=== PATIENT | male | born 1945 | race Caucasian/White ===

== ENCOUNTER 2019-10-14 09:37 | Emergency (ER) | payer MEDICARE ==
--- NOTE | 2019-10-14 09:47 | EDM.PDOC ---
ED HPI GENERAL MEDICAL PROBLEM - General Chief Complaint: Genitourinary Problem Stated Complaint: plugged fernandez Time Seen by Provider: 10/14/19 09:50 Source of Information: Reports: Patient History Limitations: Reports: No Limitations - History of Present Illness INITIAL COMMENTS - FREE TEXT/NARRATIVE: This patient presents to the ED stating he has a pulled urinary catheter. He has an indwelling catheter that was changed on 09/28. He tried irrigation this morning at home but was unsuccessful. He denies other concerns or complaints. 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 ED EXAM, RENAL/ - Physical Exam Exam: See Below Exam Limited By: No Limitations General Appearance: Alert, No Apparent Distress Eye Exam: Bilateral Eye: PERRL Ears: Normal External Exam, Normal TMs Nose: Normal Inspection Throat/Mouth: Normal Inspection Head: Atraumatic, Normocephalic Neck: Normal Inspection, Full Range of Motion Respiratory/Chest: No Respiratory Distress, No Accessory Muscle Use (Male) Exam: Normal Inspection, Suprapubic Fullness Neurological: Alert, Oriented Psychiatric: Normal Affect Skin Exam: Warm, Dry, Intact, Normal Color Course - Re-Assessments/Exams Free Text/Narrative Re-Assessment/Exam: 10/14/19 10:10 This patient presented for urinary retention. Nursing attempted irrigation but was unsuccessful; fernandez was replaced without difficulty. Patient's bladder drained with significant improvement. Departure - Departure Time of Disposition: 10:05 Disposition: Home, Self-Care 01 Clinical Impression: Urinary retention - Discharge Information Referrals: PCP,None [Primary Care Provider] - Forms: ED Department Discharge Sepsis Event Note - Focused Exam Date Exam was Performed: 10/14/19 Time Exam was Performed: 10:10
== END 2019-10-14 10:10 | disposition home or self-care (01) ==
LOC: LB.ED 09:37
DX: R33.9 Retention of urine, unspecified (principal)
CPT/HCPCS: 51702; 99283-25

== ENCOUNTER 2019-12-03 12:22 | Emergency (ER) | payer MEDICARE ==
--- NOTE | 2019-12-03 12:54 | EDM.PDOC ---
ED HPI GENERAL MEDICAL PROBLEM - General Chief Complaint: General Stated Complaint: plugged catheter Time Seen by Provider: 12/03/19 12:40 Source of Information: Reports: Patient History Limitations: Reports: No Limitations - History of Present Illness INITIAL COMMENTS - FREE TEXT/NARRATIVE: neurogenic bladder. Has had indwelling catheter since May 2019. He has not made it 30 days between changes due to clogging. Last replaced 11/10/2019. Since that time he has had no problems until this morning. He last emptied his leg bag a 8 am. Since that time he has had increasing pressure. He tried to manipulate and irrigate the catheter without success. He is having significant discomfort. 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 (see below) Other Treatments FINAL INSPECTOR PAPER: attempted to irrigate bladder Past Medical History Genitourinary History: Reports: Neurogenic Bladder, Retention, Urinary Hematologic History: Reports: None - Past Surgical History Male Surgical History: Reports: None Oncologic Surgical History: Reports: None Social & Family History - Family History Family Medical History: Noncontributory - Caffeine Use Caffeine Use: Reports: Coffee ED ROS GENERAL - Review of Systems Review Of Systems: See Below Constitutional: Reports: No Symptoms Respiratory: Reports: No Symptoms Cardiovascular: Reports: No Symptoms GI/Abdominal: Reports: No Symptoms : Reports: Incontinence, Pain, Urinary Retention Musculoskeletal: Reports: No Symptoms Skin: Reports: No Symptoms Neurological: Reports: No Symptoms ED EXAM, GENERAL - Physical Exam Exam: See Below Exam Limited By: No Limitations General Appearance: Alert, WD/WN, Moderate Distress Respiratory/Chest: No Respiratory Distress, Lungs Clear, Normal Breath Sounds, No Accessory Muscle Use Cardiovascular: Normal Peripheral Pulses, Regular Rate, Rhythm, No Edema GI/Abdominal: Normal Bowel Sounds, Soft, Non-Tender (Male) Exam: Normal Inspection. No: Penile Lesions, Scrotal Swelling, Urethral Discharge Rectal (Males) Exam: Deferred Extremities: Normal Inspection, Normal Range of Motion, Non-Tender Neurological: Alert, Oriented, CN II-XII Intact, Normal Cognition, Normal Gait, Normal Reflexes Skin Exam: Warm, Dry, Intact, Other (area under leg bag reddened where strap rubs leg - he uses a bandaid on his skin to keep from having friction against leg and preventing sore) Lymphatic: No Adenopathy Course - Vital Signs Text/Narrative:: Replace urinary catheter. Departure - Departure Time of Disposition: 13:15 Disposition: Home, Self-Care 01 Condition: Good Clinical Impression: Neurogenic bladder, Urinary retention - Discharge Information *PRESCRIPTION DRUG MONITORING PROGRAM REVIEWED*: Not Applicable *COPY OF PRESCRIPTION DRUG MONITORING REPORT IN PATIENT MOUSTAPHA: Not Applicable Instructions: Neurogenic Bladder Care Plan Goals: Patient to follow up with Urologist when he returns to [place]. Currently he [place] in [place] and [place] in [place]. He is to make clinic appointment to have cath changed in 30 days or return to ER if unable to void after manipulation/irrigation of catheter.
== END 2019-12-03 13:15 | disposition home or self-care (01) ==
LOC: LB.ED 12:22
DX: R33.9 Retention of urine, unspecified (principal); N31.9 Neuromuscular dysfunction of bladder, unspecified
CPT/HCPCS: 51702; 99283

== ENCOUNTER 2019-12-17 08:43 | Emergency (ER) | payer MEDICARE ==
--- NOTE | 2019-12-17 09:44 | EDM.PDOC ---
ED HPI GENERAL MEDICAL PROBLEM - General Chief Complaint: Genitourinary Problem Stated Complaint: PLUGGED CATH Time Seen by Provider: 12/17/19 09:35 Source of Information: Reports: Patient, RN History Limitations: Reports: No Limitations - History of Present Illness INITIAL COMMENTS - FREE TEXT/NARRATIVE: Patient has had a fernandez cath since Jun. He woke this morning ant it was plugged, he attempted to flush it at home without success. Per nursing bladderscan showed 800ml. Onset: Today Onset Date: 12/17/19 Improves with: Reports: Other (fernandez replacement) Associated Symptoms: Reports: No Other Symptoms - Related Data Home Meds: Home Meds Tamsulosin [Flomax] 0.4 mg PO DAILY 12/17/19 [History] Past Medical History - Past Health History Medical/Surgical History: Denies Medical/Surgical History Genitourinary History: Reports: Neurogenic Bladder, Retention, Urinary Hematologic History: Reports: None - Past Surgical History Male Surgical History: Reports: None Oncologic Surgical History: Reports: None Social & Family History - Family History Family Medical History: Noncontributory - Tobacco Use Smoking Status *Q: Never Smoker Second Hand Smoke Exposure: No - Caffeine Use Caffeine Use: Reports: Coffee ED ROS GENERAL - Review of Systems Review Of Systems: See Below Constitutional: Reports: No Symptoms HEENT: Reports: No Symptoms Respiratory: Reports: No Symptoms Cardiovascular: Reports: No Symptoms Endocrine: Reports: No Symptoms GI/Abdominal: Reports: Other (full bladder sensation, denies pain). Denies: Abdominal Pain Skin: Reports: No Symptoms Neurological: Reports: No Symptoms Psychiatric: Reports: No Symptoms ED EXAM, RENAL/ - Physical Exam Exam: See Below Exam Limited By: No Limitations General Appearance: Alert Throat/Mouth: Normal Voice Head: Atraumatic Neck: Full Range of Motion Respiratory/Chest: No Respiratory Distress, Lungs Clear, Normal Breath Sounds Cardiovascular: No Murmur GI/Abdominal: Soft, Non-Tender (Male) Exam: Suprapubic Fullness Back Exam: Normal Inspection. No: CVA Tenderness (R), CVA Tenderness (L) Neurological: Alert, Oriented Psychiatric: Normal Affect Skin Exam: Warm, Dry Course - Vital Signs Last Recorded V/S: Last Vital Signs Temp 97.3 F 12/17/19 08:55 Pulse 73 12/17/19 08:55 Resp 18 12/17/19 08:55 BP 162/81 H 12/17/19 08:55 Pulse Ox - Orders/Labs/Meds Orders: Active Orders 24 hr Category Date Time Status UA W/MICROSCOPIC [URIN] Stat Lab 12/17/19 09:37 Results Labs: Laboratory Tests 12/17/19 Range/Units 09:37 Urine Color Yellow Urine Appearance Slightly cloudy (CLEAR) Urine pH 7.5 (5.0-8.0) Ur Specific [place] 1.020 (1.003-1.030) Urine Protein Negative (NEGATIVE) mg/dL Urine Glucose (UA) Negative (NEGATIVE) mg/dL Urine Ketones Negative (NEGATIVE) mg/dL Urine Occult Blood Large H (NEGATIVE) Urine Nitrite Negative (NEGATIVE) Urine Bilirubin Negative (NEGATIVE) Urine Urobilinogen 0.2 (0.2-1.0) E.U./dL Ur Leukocyte Esterase Moderate H (NEGATIVE) Departure - Departure Time of Disposition: 10:12 Disposition: Home, Self-Care 01 Condition: Good Clinical Impression: Retention of urine, Urinary retention - Discharge Information *PRESCRIPTION DRUG MONITORING PROGRAM REVIEWED*: No *COPY OF PRESCRIPTION DRUG MONITORING REPORT IN PATIENT MOUSTAPHA: No Instructions: Indwelling Urinary Catheter Care, Adult, [id number] Referrals: PCP,None [Primary Care Provider] - Forms: ED Department Discharge Additional Instructions: Follow up with your primary doctor if symptoms persist. Return to ED for any increased or new concerning symptoms. Sepsis Event Note (ED) - Evaluation Sepsis Screening Result: No Definite Risk - Focused Exam Vital Signs: Vital Signs Temp Pulse Resp BP 12/17/19 08:55 97.3 F 73 18 162/81 H - My Orders Last 24 Hours: My Active Orders 12/17/19 09:37 UA W/MICROSCOPIC [URIN] Stat - Assessment/Plan Last 24 Hours: My Active Orders 12/17/19 09:37 UA W/MICROSCOPIC [URIN] Stat
== END 2019-12-17 10:25 | disposition home or self-care (01) ==
LOC: LB.ED 08:43
DX: R33.9 Retention of urine, unspecified (principal)
CPT/HCPCS: 51702; 51798; 81001; 99283

== ENCOUNTER 2020-02-03 08:01 | Emergency (ER) | payer MEDICARE ==
--- NOTE | 2020-02-03 09:09 | EDM.PDOC ---
ED HPI GENERAL MEDICAL PROBLEM - General Chief Complaint: General Stated Complaint: PLUGGED CATH Time Seen by Provider: 02/03/20 08:45 Source of Information: Reports: Patient - History of Present Illness INITIAL COMMENTS - FREE TEXT/NARRATIVE: indwelling fernandez since June. Emptied his bag this AM and then it stopped draining. He attempted to unplug it at home without success. Denies any fever, cough, SOB, CP, or urinary symptoms.. Onset: Today Severity: Mild - Related Data Allergies Allergy/AdvReac Type Severity Reaction Status Date / Time No Known Allergies Allergy Verified 02/03/20 09:02 Home Meds: Home Meds Tamsulosin [Flomax] 0.4 mg PO DAILY 12/17/19 [History] cephALEXin [Cephalexin] 500 mg PO Q6HR 7 Days #28 tablet 02/03/20 [Rx] Past Medical History - Past Health History Medical/Surgical History: Denies Medical/Surgical History Genitourinary History: Reports: Neurogenic Bladder, Retention, Urinary Hematologic History: Reports: None - Past Surgical History Male Surgical History: Reports: None Oncologic Surgical History: Reports: None Social & Family History - Family History Family Medical History: Noncontributory - Tobacco Use Smoking Status *Q: Never Smoker Second Hand Smoke Exposure: No - Caffeine Use Caffeine Use: Reports: None - Recreational Drug Use Recreational Drug Use: No ED ROS GENERAL - Review of Systems Review Of Systems: See Below Constitutional: Reports: No Symptoms HEENT: Reports: No Symptoms Respiratory: Reports: No Symptoms Cardiovascular: Reports: No Symptoms Endocrine: Reports: No Symptoms GI/Abdominal: Reports: No Symptoms : Reports: Urinary Retention Musculoskeletal: Reports: No Symptoms Skin: Reports: No Symptoms Neurological: Reports: No Symptoms Psychiatric: Reports: No Symptoms Hematologic/Lymphatic: Reports: No Symptoms ED EXAM, GENERAL - Physical Exam Exam: See Below Exam Limited By: No Limitations General Appearance: Alert, No Apparent Distress Head: Atraumatic Neck: Normal Inspection Respiratory/Chest: No Respiratory Distress Cardiovascular: Regular Rate, Rhythm, No Edema GI/Abdominal: Soft, Non-Tender, No Distention (Male) Exam: Other (blood noted to meatus after cath insertion, patient denies pain and states this has happened in the past with cath changed). No: Suprapubic Fullness Rectal (Males) Exam: Deferred Extremities: Normal Inspection, Normal Range of Motion Neurological: Alert, Oriented, Normal Cognition Psychiatric: Normal Affect, Normal Mood Skin Exam: Warm, Dry, Intact Course - Vital Signs Last Recorded V/S: Last Vital Signs Temp 96.9 F 02/03/20 08:13 Pulse 83 02/03/20 08:13 Resp 18 02/03/20 08:13 BP 164/98 H 02/03/20 08:13 Pulse Ox 96 02/03/20 08:13 - Orders/Labs/Meds Orders: Active Orders 24 hr Category Date Time Status Fernandez Catheter Insertion [Insert Urinary Catheter] [OM. Care 02/03/20 08:15 Ordered PC] Q24H Urinary Catheter Assessment [RC] ASDIRECTED Care 02/03/20 08:38 Active Labs: Laboratory Tests 02/03/20 Range/Units 08:37 Urine Color Yellow Urine Appearance Clear (CLEAR) Urine pH 7.0 (5.0-8.0) Ur Specific [place] 1.015 (1.003-1.030) Urine Protein Negative (NEGATIVE) mg/dL Urine Glucose (UA) Negative (NEGATIVE) mg/dL Urine Ketones Negative (NEGATIVE) mg/dL Urine Occult Blood Large H (NEGATIVE) Urine Nitrite Negative (NEGATIVE) Urine Bilirubin Negative (NEGATIVE) Urine Urobilinogen 0.2 (0.2-1.0) E.U./dL Ur Leukocyte Esterase Large H (NEGATIVE) Urine RBC 10-20 H /HPF Urine WBC 50-75 H /HPF Urine WBC Clumps Rare /HPF Urine Bacteria Few /HPF Departure - Departure Time of Disposition: 09:13 Disposition: Home, Self-Care 01 Condition: Good Clinical Impression: Catheter (urine) change required UTI (urinary tract infection) Qualifiers: Indwelling urinary catheter type: indwelling urethral catheter Encounter type: initial encounter - Discharge Information *PRESCRIPTION DRUG MONITORING PROGRAM REVIEWED*: Not Applicable *COPY OF PRESCRIPTION DRUG MONITORING REPORT IN PATIENT MOUSTAPHA: Not Applicable Prescriptions: cephALEXin [Cephalexin] 500 mg PO Q6HR 7 Days #28 tablet Instructions: Urinary Tract Infection, Adult, [id number] Referrals: PCP,None [Primary Care Provider] - Additional Instructions: Follow up with your primary doctor next week for urine recheck. Return to ED for any increased or new concerning symptoms. Take the antibiotics every 6 hours for 7 days. Sepsis Event Note (ED) - Evaluation Sepsis Screening Result: No Definite Risk - Focused Exam Vital Signs: Vital Signs Temp Pulse Resp BP Pulse Ox 02/03/20 08:13 96.9 F 83 18 164/98 H 96 02/03/20 08:12 96.9 F 94 18 164/98 H 96 - My Orders Last 24 Hours: My Active Orders 02/03/20 08:15 Fernandez Catheter Insertion [Insert Urinary Catheter] [OM.PC] Q24H 02/03/20 08:38 Urinary Catheter Assessment [RC] ASDIRECTED - Assessment/Plan Last 24 Hours: My Active Orders 02/03/20 08:15 Fernandez Catheter Insertion [Insert Urinary Catheter] [OM.PC] Q24H 02/03/20 08:38 Urinary Catheter Assessment [RC] ASDIRECTED
== END 2020-02-03 09:20 | disposition home or self-care (01) ==
LOC: LB.ED 08:01
DX: Z46.6 Encounter for fitting and adjustment of urinary device (principal); N39.0 Urinary tract infection, site not specified; Z79.899 Other long term (current) drug therapy
CPT/HCPCS: 51702; 81001; 99283; 99283-25

== ENCOUNTER 2020-10-27 07:35 | Emergency (ER) | payer MEDICARE ==
--- NOTE | 2020-10-27 09:00 | ER ---
HISTORY OF PRESENT ILLNESS: A 75-year-old male who comes to the ER because his Chawla catheter is plugged. He has had this catheter in place for at least a year. He states that his bladder is stretched out and not working properly anymore. The patient states that he has had to have the Chawla catheter changed a few times. He is feeling okay. He is not running a fever. He does not feel sick. He does not have any pain. He can just tell that he is starting to build up a little pressure in the bladder. OBJECTIVE: GENERAL APPEARANCE: The patient is awake and alert. No obvious distress. VITAL SIGNS: Reviewed as listed. : The patient does have a Chawla catheter in place with a very small amount of urine in the bag. TREATMENT PLAN: Nursing staff tried to flush the Chawla without success. Therefore, it was decided to change the Chawla for a new one. Nursing staff did insert a new Chawla, but was unsuccessful getting it in. We then switched to a coude catheter and nursing staff was able to insert that without any difficulty and immediately was a blood tinged flow of urine with a couple of small clots. At this point, the patient will be discharged. He is to follow up as needed with his primary care provider. He states that the urologist he sees is in [place] in the winter time. I feel the patient may be a candidate for a suprapubic catheter at some point in time, but that is the decision he can make with his urologist. The patient has no further questions. Dz: Plugged Chawla catheter. CRS/MODL /[id number] MERY
== END 2020-10-27 08:30 | disposition home or self-care (01) ==
LOC: LB.ED 07:35
DX: Z46.6 Encounter for fitting and adjustment of urinary device (principal)
CPT/HCPCS: 99282; 99283

== ENCOUNTER 2021-01-16 10:34 | Emergency (ER) | payer MEDICARE ==
--- NOTE | 2021-01-16 17:14 | EDM.PDOC ---
ED HPI GENERAL MEDICAL PROBLEM - General Chief Complaint: Tube Replacement Stated Complaint: CATHETER CHANGE Time Seen by Provider: 01/16/21 10:40 Source of Information: Reports: Patient History Limitations: Reports: No Limitations - History of Present Illness INITIAL COMMENTS - FREE TEXT/NARRATIVE: This patient presented to the ED requesting that his indwelling fernandez catheter be changed. He states he always "just shows up" when he needs it changed. - Related Data Allergies Allergy/AdvReac Type Severity Reaction Status Date / Time No Known Allergies Allergy Verified 01/16/21 10:41 Home Meds: Home Meds Tamsulosin [Flomax] 0.4 mg PO DAILY 12/17/19 [History] Past Medical History - Past Health History Medical/Surgical History: Denies Medical/Surgical History Genitourinary History: Reports: Neurogenic Bladder, Retention, Urinary Hematologic History: Reports: None - Past Surgical History Male Surgical History: Reports: None Oncologic Surgical History: Reports: None Social & Family History - Family History Family Medical History: No Pertinent Family History - Caffeine Use Caffeine Use: Reports: Coffee ED ROS GENERAL - Review of Systems Review Of Systems: See Below Reason Not Obtained: Patient did not request nor require emergency care. ED EXAM, GENERAL - Physical Exam Exam: Not Obtained Reason Not Obtained: Patient did not request nor require emergency care. Course - Vital Signs Last Recorded V/S: Last Vital Signs Temp 35.9 C L 01/16/21 10:43 Pulse 77 01/16/21 10:43 Resp 18 01/16/21 10:43 BP 179/77 H 01/16/21 10:43 Pulse Ox 95 01/16/21 10:43 Departure - Departure Time of Disposition: 11:50 Disposition: Home, Self-Care 01 Clinical Impression: Fernandez catheter in place prior to arrival - Discharge Information Instructions: Indwelling Urinary Catheter Care, Adult, [id number] Referrals: PCP,None [Primary Care Provider] - Forms: ED Department Discharge Sepsis Event Note (ED) - Evaluation Sepsis Screening Result: No Definite Risk - Focused Exam Vital Signs: Vital Signs Temp Pulse Resp BP Pulse Ox 01/16/21 10:43 35.9 C L 77 18 179/77 H 95
== END 2021-01-16 11:11 | disposition home or self-care (01) ==
LOC: LB.ED 10:34
DX: T83.091A Other mechanical complication of indwelling urethral catheter, initial encounter (principal)
CPT/HCPCS: 51702; 99283-25

== ENCOUNTER 2021-02-23 19:40 | Emergency (ER) | payer MEDICARE ==
--- NOTE | 2021-02-23 20:56 | EDM.PDOC ---
ED HPI GENERAL MEDICAL PROBLEM - General Chief Complaint: General Stated Complaint: CATH. CHANGE Time Seen by Provider: 02/23/21 19:50 - History of Present Illness INITIAL COMMENTS - FREE TEXT/NARRATIVE: Pt is here for a catheter change. He has had one for over 1 yr, and gets it changed every few weeks. He is not having any issues. He tried to get it done at the clinic once and was told to come here, so that's what he does. - Related Data Allergies Allergy/AdvReac Type Severity Reaction Status Date / Time No Known Allergies Allergy Verified 02/23/21 20:23 Home Meds: Home Meds Tamsulosin [Flomax] 0.4 mg PO DAILY 12/17/19 [History] Past Medical History - Past Health History Medical/Surgical History: Denies Medical/Surgical History Genitourinary History: Reports: Neurogenic Bladder, Retention, Urinary Hematologic History: Reports: None - Past Surgical History Male Surgical History: Reports: None Oncologic Surgical History: Reports: None Social & Family History - Family History Family Medical History: No Pertinent Family History - Caffeine Use Caffeine Use: Reports: Coffee - Recreational Drug Use Recreational Drug Use: No ED ROS GENERAL - Review of Systems Review Of Systems: Comprehensive ROS is negative, except as noted in HPI. : Reports: Other (Urinary catheter without issues.) ED EXAM, GENERAL - Physical Exam Exam: See Below Course - Vital Signs Last Recorded V/S: Last Vital Signs Temp 97 F 02/23/21 20:24 Pulse 89 02/23/21 20:24 Resp 18 02/23/21 20:24 BP 153/85 H 02/23/21 20:24 Pulse Ox 97 02/23/21 20:24 - Re-Assessments/Exams Free Text/Narrative Re-Assessment/Exam: 02/23/21 20:55 Nursing staff replaced his catheter without any issues. Pt was discharged. Departure - Departure Time of Disposition: 20:15 Disposition: Home, Self-Care 01 Condition: Good Clinical Impression: Catheter (urine) change required - Discharge Information *PRESCRIPTION DRUG MONITORING PROGRAM REVIEWED*: No *COPY OF PRESCRIPTION DRUG MONITORING REPORT IN PATIENT MOUSTAPHA: No Referrals: PCP,None [Primary Care Provider] - Forms: ED Department Discharge Sepsis Event Note (ED) - Evaluation Sepsis Screening Result: No Definite Risk - Focused Exam Vital Signs: Vital Signs Temp Pulse Resp BP Pulse Ox 02/23/21 20:24 97 F 89 18 153/85 H 97
== END 2021-02-23 20:34 | disposition home or self-care (01) ==
LOC: LB.ED 19:40
DX: T83.091A Other mechanical complication of indwelling urethral catheter, initial encounter (principal); Z79.899 Other long term (current) drug therapy
CPT/HCPCS: 51702; 99283-25

== ENCOUNTER 2021-10-09 07:59 | Emergency (ER) | payer MEDICARE | END 2021-10-09 09:00 | disposition home or self-care (01) | LOC: LB.ED 07:59 | DX: T83.098A Other mechanical complication of other urinary catheter, initial encounter (principal); R33.9 Retention of urine, unspecified | CPT/HCPCS: 51702; 99281; 99283-25 ==

== ENCOUNTER 2021-10-28 18:05 | Emergency (ER) | payer MEDICARE | END 2021-10-28 19:27 | disposition home or self-care (01) | LOC: LB.ED 18:05 | DX: R33.9 Retention of urine, unspecified (principal) | CPT/HCPCS: 51702; 99281; 99283-25 ==

== ENCOUNTER 2021-11-16 07:30 | Emergency (ER) | payer MEDICARE | END 2021-11-16 08:09 | disposition home or self-care (01) | LOC: LB.ED 07:30 | DX: Z46.6 Encounter for fitting and adjustment of urinary device (principal) | CPT/HCPCS: 51702; 99283-25 ==

== ENCOUNTER 2022-01-13 17:33 | Emergency (ER) | payer MEDICARE | END 2022-01-13 17:55 | disposition home or self-care (01) | LOC: LB.ED 17:33 | DX: T83.098A Other mechanical complication of other urinary catheter, initial encounter (principal) | CPT/HCPCS: 51702; 99281; 99283 ==

== ENCOUNTER 2022-02-12 08:00 | Emergency (ER) | payer MEDICARE | END 2022-02-12 09:24 | disposition home or self-care (01) | LOC: LB.ED 08:00 | DX: T83.098A Other mechanical complication of other urinary catheter, initial encounter (principal); R33.9 Retention of urine, unspecified | CPT/HCPCS: 51702; 99283 ==

== ENCOUNTER 2022-12-13 17:48 | Emergency (ER) | payer MEDICARE, OTHER ==
[2022-12-13 19:10] LABS: APPEARANCE,URINE CLEAR (CLEAR); BILIRUBIN,URINE NEGATIVE (NEGATIVE); COLOR,URINE YELLOW; GLUCOSE,URINE NEGATIVE (NEGATIVE); KETONES,URINE NEGATIVE (NEGATIVE); LEUKOCYTE ESTERASE,URINE LARGE (NEGATIVE); NITRITE,URINE NEGATIVE (NEGATIVE); OCCULT BLOOD,URINE MODERATE (NEGATIVE); PH,URINE 7.5 (5.0-8.0); PROTEIN,URINE 100 mg/dL (NEGATIVE); UROBILINOGEN,URINE 0.2 E.U./dL (0.2-1.0)
[2022-12-13 19:16] LABS: RBC,URINE 20-30 /HPF; SQUAMOUS EPITHELIAL CELLS,UR OCCASIONAL /HPF; WBC,URINE >100 /HPF
[2022-12-13] MEDS ORDERED: Sulfamethoxazole/Trimethoprim 800-160 MG Tab ONE (19:30)
== END 2022-12-13 19:45 | disposition home or self-care (01) ==
LOC: LB.ED 17:48
DX: N39.0 Urinary tract infection, site not specified (principal); Z46.6 Encounter for fitting and adjustment of urinary device; Z79.899 Other long term (current) drug therapy
CPT/HCPCS: 51702; 81001; 87086; 99283; A9270

== ENCOUNTER 2023-01-31 12:45 | Emergency (ER) | payer MEDICARE ==
[2023-01-31 14:27] VITALS: BP 176/68; PULSE 77
== END 2023-01-31 13:33 | disposition home or self-care (01) ==
LOC: LB.ED 12:45
DX: R33.9 Retention of urine, unspecified (principal)
CPT/HCPCS: 51702; 99282; 99283

== ENCOUNTER 2023-02-24 03:47 | Emergency (ER) | payer MEDICARE | END 2023-02-24 04:27 | disposition home or self-care (01) | LOC: LB.ED 03:47 | DX: R33.9 Retention of urine, unspecified (principal); Z79.899 Other long term (current) drug therapy | CPT/HCPCS: 51702; 99283 ==

== ENCOUNTER 2023-02-26 07:22 | Emergency (ER) | payer MEDICARE ==
[2023-02-26 07:55] LABS: APPEARANCE,URINE TURBID (CLEAR); BILIRUBIN,URINE NEGATIVE (NEGATIVE); COLOR,URINE YELLOW; GLUCOSE,URINE NEGATIVE (NEGATIVE); KETONES,URINE NEGATIVE (NEGATIVE); LEUKOCYTE ESTERASE,URINE LARGE (NEGATIVE); NITRITE,URINE POSITIVE (NEGATIVE); OCCULT BLOOD,URINE LARGE (NEGATIVE); PH,URINE >= 9.0 (5.0-8.0); PROTEIN,URINE 30 mg/dL (NEGATIVE); UROBILINOGEN,URINE 0.2 E.U./dL (0.2-1.0)
[2023-02-26 08:03] LABS: AMORPHOUS SEDIMENT,URINE MANY /HPF; BACTERIA,URINE MANY /HPF; SQUAMOUS EPITHELIAL CELLS,UR OCCASIONAL /HPF
[2023-02-26] MEDS ORDERED: Ciprofloxacin 500 MG Tab ONE (08:30)
== END 2023-02-26 08:45 | disposition home or self-care (01) ==
LOC: LB.ED 07:22
DX: T83.511A Infection and inflammatory reaction due to indwelling urethral catheter, initial encounter (principal); N39.0 Urinary tract infection, site not specified
CPT/HCPCS: 81001; 87086; 99283; A9270